=== PATIENT | male | born 1940 | race Caucasian/White ===

== ENCOUNTER 2019-03-18 14:38 | Emergency (ER) | payer MEDICARE, OTHER ==
[~2019-03-18] VITALS: Ht 177.8 cm; Wt 78.5 kg
[2019-03-18 15:16] LABS: BASOPHILS ABSOLUTE AUTO 0.07 K/mm3 (0.00-0.23); BASOPHILS PERCENT AUTO 1 % (0-2); EOSINOPHILS ABSOLUTE AUTO 0.09 K/mm3 (0.00-0.68); EOSINOPHILS PERCENT AUTO 1 % (0-6); Hematocrit 36.9 % (37.0-53.0); Hemoglobin 12.2 g/dL (13.5-17.5); IMMATURE GRAN ABSOLUTE AUTO 0.04 K/mm3 (0.00-0.10); IMMATURE GRAN PERCENT AUTO 0 % (0-1); LYMPHOCYTES ABSOLUTE AUTO 1.05 K/mm3 (0.84-5.20); LYMPHOCYTES PERCENT AUTO 10 % (21-46); MONOCYTES ABSOLUTE AUTO 0.75 K/mm3 (0.16-1.47); MONOCYTES PERCENT AUTO 7 % (4-13); Mean Corpuscular HGB 30.4 pg (26.0-34.0); Mean Corpuscular HGB Conc 33.1 g/dL (31.5-36.5); Mean Corpuscular Volume 92 fL (80-100); Mean Platelet Volume 9.4 fL (9.1-12.4); NEUTROPHILS ABSOLUTE AUTO 8.68 K/mm3 (1.96-9.15); NEUTROPHILS PERCENT AUTO 81 % (41-73); Platelet Count 265 K/mm3 (150-400); RDW Coefficient Variation 13.7 % (11.7-14.2); RDW Standard Deviation 46.8 fL (35.1-46.3); Red Blood Cell Count 4.01 M/mm3 (4.30-5.90); White Blood Cell Count 10.68 K/mm3 (4.00-11.30)
[2019-03-18 15:33] LABS: Alanine Aminotransfer (ALT/SGP 25 U/L (12-78); Albumin, Blood 3.6 g/dL (3.4-5.0); Albumin/Globulin Ratio 1.1 (0.8-1.8); Alk Phos 67 U/L (50-136); Anion Gap 13 mmol/L (6-16); Aspartate Aminotrans (AST/SGOT 14 U/L (12-37); Bilirubin, Total 0.5 mg/dL (0.1-1.0); Blood Urea Nitrogen 21 mg/dL (8-24); CO2, Blood 21 mmol/L (21-32); Calcium, Blood 8.9 mg/dL (8.5-10.1); Chloride, Blood 108 mmol/L (98-108); Creatinine, Blood 0.84 mg/dL (0.60-1.20); Globulin, Blood 3.4 g/dL (2.2-4.0); Glomerular Filtration Rate >60 (60-); Glucose, Blood 186 mg/dL (70-99); Potassium, Blood 4.2 mmol/L (3.5-5.5); Sodium, Blood 142 mmol/L (136-145); Troponin I <0.015 ng/mL (0.000-0.040)
== END 2019-03-18 16:45 | disposition home or self-care (01) ==
LOC: ER 14:38
PROVIDERS: Physician Assistant
DX: I95.2 Hypotension due to drugs (principal); T46.1X5A Adverse effect of calcium-channel blockers, initial encounter; I11.0 Hypertensive heart disease with heart failure; I50.9 Heart failure, unspecified
CPT/HCPCS: 36415; 80053; 83880; 84484; 85025; 93005; 93010; 99285-25

== ENCOUNTER 2019-09-26 23:10 | Emergency (ER) | payer OTHER, MEDICARE ==
[~2019-09-26] VITALS: Ht 177.8 cm; Wt 78.0 kg
[2019-09-26] MEDS ORDERED: GEMF600 PO (23:30)
[2019-09-26] MEDS ORDERED: TERA5 PO (23:31)
[2019-09-26] MEDS ORDERED: Diovan160 MG PO (23:31)
[2019-09-26] MEDS ORDERED: NIFE60ER PO (23:31)
[2019-09-26] MEDS ORDERED: THERA-D2000 UNIT PO (23:32)
[2019-09-26] MEDS ORDERED: ASPI81CH PO (23:33)
[2019-09-26 23:34] LABS: BASOPHILS ABSOLUTE AUTO 0.06 K/mm3 (0.00-0.23); BASOPHILS PERCENT AUTO 1 % (0-2); EOSINOPHILS ABSOLUTE AUTO 0.06 K/mm3 (0.00-0.68); EOSINOPHILS PERCENT AUTO 1 % (0-6); Hematocrit 40.2 % (37.0-53.0); Hemoglobin 13.1 g/dL (13.5-17.5); IMMATURE GRAN ABSOLUTE AUTO 0.02 K/mm3 (0.00-0.10); IMMATURE GRAN PERCENT AUTO 0 % (0-1); LYMPHOCYTES ABSOLUTE AUTO 0.97 K/mm3 (0.84-5.20); LYMPHOCYTES PERCENT AUTO 14 % (21-46); MONOCYTES ABSOLUTE AUTO 0.48 K/mm3 (0.16-1.47); MONOCYTES PERCENT AUTO 7 % (4-13); Mean Corpuscular HGB 29.9 pg (26.0-34.0); Mean Corpuscular HGB Conc 32.6 g/dL (31.5-36.5); Mean Corpuscular Volume 92 fL (80-100); Mean Platelet Volume 9.8 fL (9.1-12.4); NEUTROPHILS ABSOLUTE AUTO 5.53 K/mm3 (1.96-9.15); NEUTROPHILS PERCENT AUTO 78 % (41-73); Platelet Count 250 K/mm3 (150-400); RDW Coefficient Variation 13.2 % (11.7-14.2); RDW Standard Deviation 43.9 fL (35.1-46.3); Red Blood Cell Count 4.38 M/mm3 (4.30-5.90); White Blood Cell Count 7.12 K/mm3 (4.00-11.30)
[2019-09-26] MEDS ORDERED: POTASSIUM99 MG PO (23:34)
[2019-09-26 23:58] LABS: Alanine Aminotransfer (ALT/SGP 20 U/L (12-78); Albumin, Blood 3.7 g/dL (3.4-5.0); Albumin/Globulin Ratio 0.9 (0.8-1.8); Alk Phos 54 U/L (50-136); Anion Gap 10 mmol/L (6-16); Aspartate Aminotrans (AST/SGOT 13 U/L (12-37); Bilirubin, Total 0.3 mg/dL (0.1-1.0); Blood Urea Nitrogen 18 mg/dL (8-24); Bun/Creatinine Ratio 16.8 (12.0-20.0); CO2, Blood 24 mmol/L (21-32); Calcium, Blood 9.1 mg/dL (8.5-10.1); Chloride, Blood 105 mmol/L (98-108); Creatinine, Blood 1.07 mg/dL (0.60-1.20); Globulin, Blood 3.9 g/dL (2.2-4.0); Glomerular Filtration Rate >60 (60-); Glucose, Blood 231 mg/dL (70-99); Potassium, Blood 3.9 mmol/L (3.5-5.5); Sodium, Blood 139 mmol/L (136-145); Total Protein, Blood 7.6 g/dL (6.4-8.2); Troponin I 0.016 ng/mL (0.000-0.040)
== END 2019-09-27 03:35 | disposition home or self-care (01) ==
LOC: ER 23:10
PROVIDERS: Emergency Medicine
DX: R56.9 Unspecified convulsions (principal)
CPT/HCPCS: 80053; 84484; 85025; 93005; 93010; 99284-25

== ENCOUNTER 2019-11-17 12:23 | Inpatient (IN) | payer OTHER, MEDICARE ==
[~2019-11-17] VITALS: Ht 172.7 cm; Wt 77.7 kg
[~2019-11-17 12:23] MED LIST: ASPI81CH PO; Diovan160 MG PO; GEMF600 PO; NIFE60ER PO; POTASSIUM99 MG PO; THERA-D2000 UNIT PO; Terazosin HCl10 MG PO
[2019-11-17] MEDS ORDERED: ASPI325EC PO (12:38)
[2019-11-17] MEDS ORDERED: ELIQUIS5 MG PO (13:00)
[2019-11-17] MEDS ORDERED: FOLI1 PO (13:01)
[2019-11-17] MEDS ORDERED: LOSARTAN POTAS100 M1 PO (13:01)
[2019-11-17] MEDS ORDERED: BASAGLAR K100 UNIT/1 SC (13:02)
[2019-11-17] MEDS ORDERED: METF500 PO (13:02)
[2019-11-17 13:10] LABS: BASOPHILS ABSOLUTE AUTO 0.05 K/mm3 (0.00-0.23); BASOPHILS PERCENT AUTO 1 % (0-2); EOSINOPHILS ABSOLUTE AUTO 0.02 K/mm3 (0.00-0.68); EOSINOPHILS PERCENT AUTO 0 % (0-6); Hematocrit 41.3 % (37.0-53.0); Hemoglobin 13.5 g/dL (13.5-17.5); IMMATURE GRAN ABSOLUTE AUTO 0.03 K/mm3 (0.00-0.10); IMMATURE GRAN PERCENT AUTO 0 % (0-1); LYMPHOCYTES ABSOLUTE AUTO 0.91 K/mm3 (0.84-5.20); LYMPHOCYTES PERCENT AUTO 10 % (21-46); MONOCYTES ABSOLUTE AUTO 0.36 K/mm3 (0.16-1.47); MONOCYTES PERCENT AUTO 4 % (4-13); Mean Corpuscular HGB 30.8 pg (26.0-34.0); Mean Corpuscular HGB Conc 32.7 g/dL (31.5-36.5); Mean Corpuscular Volume 94 fL (80-100); Mean Platelet Volume 9.9 fL (9.1-12.4); NEUTROPHILS ABSOLUTE AUTO 7.69 K/mm3 (1.96-9.15); NEUTROPHILS PERCENT AUTO 85 % (41-73); Platelet Count 342 K/mm3 (150-400); RDW Coefficient Variation 13.2 % (11.7-14.2); RDW Standard Deviation 46.3 fL (35.1-46.3); Red Blood Cell Count 4.38 M/mm3 (4.30-5.90); White Blood Cell Count 9.06 K/mm3 (4.00-11.30)
[2019-11-17 13:14] LABS: Troponin I 0.022 ng/mL (0.000-0.040)
[2019-11-17 13:15] LABS: Alanine Aminotransfer (ALT/SGP 38 U/L (12-78); Albumin, Blood 3.7 g/dL (3.4-5.0); Albumin/Globulin Ratio 0.9 (0.8-1.8); Alk Phos 75 U/L (50-136); Anion Gap 6 mmol/L (6-16); Aspartate Aminotrans (AST/SGOT 20 U/L (12-37); Bilirubin, Total 0.7 mg/dL (0.1-1.0); Blood Urea Nitrogen 21 mg/dL (8-24); Bun/Creatinine Ratio 27.5 (12.0-20.0); CO2, Blood 25 mmol/L (21-32); Chloride, Blood 110 mmol/L (98-108); Creatinine, Blood 0.77 mg/dL (0.60-1.20); Globulin, Blood 3.9 g/dL (2.2-4.0); Glomerular Filtration Rate >60 (60-); Glucose, Blood 278 mg/dL (70-99); Potassium, Blood 4.3 mmol/L (3.5-5.5); Sodium, Blood 141 mmol/L (136-145); Total Protein, Blood 7.6 g/dL (6.4-8.2)
[2019-11-17 15:44] LABS: Adenovirus Not Detected (NOT DETECT); Bordetella pertussis Not Detected (NOT DETECT); Chlamydophila pneumoniae Not Detected (NOT DETECT); Coronavirus 229E Not Detected (NOT DETECT); Coronavirus HKU1 Not Detected (NOT DETECT); Coronavirus NL63 Not Detected (NOT DETECT); Coronavirus OC43 Not Detected (NOT DETECT); Human Metapneumovirus Not Detected (NOT DETECT); Human Rhinovirus/Enterovirus Not Detected (NOT DETECT); Influenza A/2009-H1 Not Detected (NOT DETECT); Influenza A/H1 Not Detected (NOT DETECT); Influenza A/H3 Not Detected (NOT DETECT); Influenza B Not Detected (NOT DETECT); Mycoplasma pneumoniae Not Detected (NOT DETECT); Parainfluenza Virus 1 Not Detected (NOT DETECT); Parainfluenza Virus 2 Not Detected (NOT DETECT); Parainfluenza Virus 3 Not Detected (NOT DETECT); Parainfluenza Virus 4 Not Detected (NOT DETECT); Respiratory Syncytial Virus Not Detected (NOT DETECT)
--- NOTE | 2019-11-17 17:12 | NUR ---
Echocardiogram completed by Nadira Bray.
--- NOTE | 2019-11-17 18:14 | NUR ---
ADMISSION NOTE PCU DAYSHIFT SUMMARY PATIENT ALERT AND ORIENTED X4. BIPAP IN PLACE - LABORED UNEVEN BREATHING NOTED; 07/08 WITH BACK UP RATE OF 14 AND RR 22-26 WITH FIO2 50%. PATIENT DENIES ANY PAIN. BLE EDEMA NOTED. HEART RATE PACED 100% AT 60 BPM. PATIENT VOIDED X2 CLEAR YELLOW URINE - ABLE TO TOLERATE STANDING AT BEDSIDE WELL. WILL CONTINUE TO MONITOR AND GIVE REPORT TO NOC SHIFT RN. CALL LIGHT W/I REACH AND BED ALARM ON.
--- NOTE | 2019-11-17 20:00 | NUR ---
ASSUMED CARE APPROXIMATELY 1900; PT A&O; BP ELEVATED; 190/100; DENIES CHEST PAIN; O2 SATS >93 ON BIPAP; FIO2 40%; RT AT BEDSIDE FOR ASSESSMENT & BIPAP ADJUSTMENT; PT STATES HE IS STARTING TO FEEL BETTER; PT STANDS AT BEDSIDE TO USE URINAL; DISCUSSED POSSIBILITY OF CONDOM CATH DURING NIGHT DUE TO FREQUENT URINATION RESULT OF LASIX ADMINISTRATION; PT DENIES NEEDS AT THIS TIME; CALL LIGHT IN REACH; BED IN LOWEST POSITION
[2019-11-18 04:13] LABS: BASOPHILS ABSOLUTE AUTO 0.01 K/mm3 (0.00-0.23); BASOPHILS PERCENT AUTO 0 % (0-2); EOSINOPHILS PERCENT AUTO 0 % (0-6); Hematocrit 38.3 % (37.0-53.0); Hemoglobin 12.7 g/dL (13.5-17.5); IMMATURE GRAN ABSOLUTE AUTO 0.03 K/mm3 (0.00-0.10); IMMATURE GRAN PERCENT AUTO 0 % (0-1); LYMPHOCYTES ABSOLUTE AUTO 1.23 K/mm3 (0.84-5.20); LYMPHOCYTES PERCENT AUTO 16 % (21-46); MONOCYTES PERCENT AUTO 9 % (4-13); Mean Corpuscular HGB 30.6 pg (26.0-34.0); Mean Corpuscular HGB Conc 33.2 g/dL (31.5-36.5); Mean Corpuscular Volume 92 fL (80-100); Mean Platelet Volume 10.2 fL (9.1-12.4); NEUTROPHILS ABSOLUTE AUTO 5.76 K/mm3 (1.96-9.15); NEUTROPHILS PERCENT AUTO 75 % (41-73); Platelet Count 324 K/mm3 (150-400); RDW Coefficient Variation 13.3 % (11.7-14.2); RDW Standard Deviation 45.2 fL (35.1-46.3); Red Blood Cell Count 4.15 M/mm3 (4.30-5.90); White Blood Cell Count 7.73 K/mm3 (4.00-11.30)
[2019-11-18 04:31] LABS: Anion Gap 8 mmol/L (6-16); Blood Urea Nitrogen 22 mg/dL (8-24); Bun/Creatinine Ratio 28.2 (12.0-20.0); CO2, Blood 26 mmol/L (21-32); Calcium, Blood 8.6 mg/dL (8.5-10.1); Chloride, Blood 108 mmol/L (98-108); Creatinine, Blood 0.78 mg/dL (0.60-1.20); Glomerular Filtration Rate >60 (60-); Glucose, Blood 243 mg/dL (70-99); Potassium, Blood 3.3 mmol/L (3.5-5.5); Sodium, Blood 142 mmol/L (136-145)
--- NOTE | 2019-11-18 06:09 | NUR ---
SHIFT SUMMARY PT A&O; PLEASANT & COMPLIANT W/CARE; CONDOM CATH PLACED PER PT REQUEST; VSS; FULLY PACED; HR NOTED ON MONITOR 54-64; PT SLEPT FOR SEVERAL HOURS IN BETWEEN INTERVENTIONS; DENIES NEEDS; CALL LIGHT IN REACH; BED IN LOWEST POSITION; WILL CONTINUE TO MONITOR CLOSELY UNTIL HAND OFF TO DAY SHIFT RN.
--- NOTE | 2019-11-18 09:30 | NUR ---
PATIENT REPORTED CHEST PRESSURE CHEST PRESSURE REPORTED PER PATIENT - MD VAUGHAN NOTIFIED. EKG COMPLETED AND NITRO PATCH PLACED PER ORDERS. VSS. WILL CONTINUE TO MONITOR PER ORDERS.
[2019-11-18 11:30] LABS: International Normalized Ratio 1.22; Prothrombin Time Results 12.9 Sec (9.7-11.5)
--- NOTE | 2019-11-18 17:07 | NUR ---
PCU DAYSHIFT SUMMARY PATIENT REMAINED ALERT AND ORIENTED X4 T/O SHIFT. PATIENT DENIED ANY FURTHER CHEST PAIN AFTER NITRO PATCH PLACED, HEPARIN GTT STARTED AND PLAVIX GIVEN. PATIENT TO BE NPO AFTER MIDNIGHT FOR A POSSIBLE ANGIO IN AM PER MD CHRISTENSEN. PATIENT PLEASANT AND COOPERATIVE WITH CARE. HEART RATE 100% PACED IN THE 60'S WITH PRESSURE NORMOTENSIVE. RESP E/U AT REST - OXYGEN TITRATED DOWN TO 3 LPM NC AND BIPAP DURING REST WITH FIO2 AT 25%. PATIENT REPORTS HE FEELS BETTER. SBA. CONDOM CATH IN PLACE DUE TO DIUESING. CALL LIGHT W/I REACH AND BED ALARM ON. WILL CONTINUE TO MONITOR AND REPORT TO NOC SHIFT RN.
--- NOTE | 2019-11-18 20:09 | NUR ---
ASSUMED CARE APPROXIMATELY 1900; PT A&O; WATCHING TV; CONVERSES EASILY W/ STAFF; NO DISTRESS NOTED; VSS; DENIES CHEST PAIN; 02 SATS >93 ON 3L NC; RT AT BEDSIDE FOR ASSESSMENT; LAB NOTIFIED OF NEED FOR BLOOD DRAW FOR PTT & TROPONIN; CALL LIGHT IN REACH; BED IN LOWEST POSITION
[2019-11-19 01:55] LABS: BASOPHILS ABSOLUTE AUTO 0.06 K/mm3 (0.00-0.23); BASOPHILS PERCENT AUTO 1 % (0-2); EOSINOPHILS ABSOLUTE AUTO 0.09 K/mm3 (0.00-0.68); EOSINOPHILS PERCENT AUTO 1 % (0-6); Hematocrit 38.4 % (37.0-53.0); Hemoglobin 12.8 g/dL (13.5-17.5); IMMATURE GRAN ABSOLUTE AUTO 0.03 K/mm3 (0.00-0.10); IMMATURE GRAN PERCENT AUTO 0 % (0-1); LYMPHOCYTES ABSOLUTE AUTO 1.95 K/mm3 (0.84-5.20); LYMPHOCYTES PERCENT AUTO 23 % (21-46); MONOCYTES ABSOLUTE AUTO 0.75 K/mm3 (0.16-1.47); MONOCYTES PERCENT AUTO 9 % (4-13); Mean Corpuscular HGB 31.1 pg (26.0-34.0); Mean Corpuscular HGB Conc 33.3 g/dL (31.5-36.5); Mean Corpuscular Volume 93 fL (80-100); Mean Platelet Volume 9.3 fL (9.1-12.4); NEUTROPHILS ABSOLUTE AUTO 5.52 K/mm3 (1.96-9.15); NEUTROPHILS PERCENT AUTO 66 % (41-73); Platelet Count 322 K/mm3 (150-400); RDW Coefficient Variation 13.4 % (11.7-14.2); RDW Standard Deviation 45.1 fL (35.1-46.3); Red Blood Cell Count 4.12 M/mm3 (4.30-5.90)
[2019-11-19 02:09] LABS: Anion Gap 7 mmol/L (6-16); Blood Urea Nitrogen 20 mg/dL (8-24); Bun/Creatinine Ratio 27.2 (12.0-20.0); CO2, Blood 28 mmol/L (21-32); Calcium, Blood 8.5 mg/dL (8.5-10.1); Chloride, Blood 105 mmol/L (98-108); Creatinine, Blood 0.74 mg/dL (0.60-1.20); Glomerular Filtration Rate >60 (60-); Glucose, Blood 193 mg/dL (70-99); Potassium, Blood 3.2 mmol/L (3.5-5.5); Sodium, Blood 140 mmol/L (136-145)
--- NOTE | 2019-11-19 07:00 | NUR ---
ASSUMED CARE AT THIS TIME. SITTING IN BED IN HIGH SUPINE POSITION. A/A/OX4, RT WITH PT, BIPAP REMOVED AND ON 4L NC. DOMINGO CATH IN PLACE DRAINING TO SHARP BAG. URINE CLEAR YELLOW. HEPARIN INFUSING AT 17UNIT/KG PER ORDERS AT THIS TIME. PACED RYTHYM ON TELEMETRY, WILL CONTINUE TO MONITOR.
--- NOTE | 2019-11-19 10:11 | NUR ---
HEPARIN BOLUS OF 4000UNITS AND DRIP INCREASED TO 19UNITS/KG PER PHARMACY ORDER.
--- NOTE | 2019-11-19 12:02 | NUR ---
INSULIN DOSE 5UNITS HUMALOG VERIFIED BY EVGENY DEY
--- NOTE | 2019-11-19 17:35 | NUR ---
SHIFT SUMMARY: A/A/OX4 THROUGHOUT SHIFT. 3L O2 VIA NC THROUGHOUT SHIFT. L/S DIMINISHED THROUGHOUT. MAINTAINED 93-96% O2 THROUGHOUT SHIFT. HEPARIN INCREASED TODAY TO 19UNITS/KG PER PHARMACY ORDER. CONDOM CATH REMOVED TODAY, USING URINAL AT BEDSIDE WITHOUT DIFFICULTY. REMAINS IN ISOLATION FOR COVID R/O. WILL CONTINUE TO MONITOR UNTIL CHANGE OF SHIFT.
--- NOTE | 2019-11-19 17:41 | NUR ---
INCREASED HEPRIN DRIP TO 20UNITS/KG PER PHARMACY ORDER.
--- NOTE | 2019-11-19 19:40 | NUR ---
ASSUMED CARE APPROXIMATELY 1900; PT A&O; STATES HE HAD A GOOD DAY; STATED HE SPOKE W/ SON ON THE PHONE; VSS; O2 SATS >93 ON 3L NC; DIM LUNG SOUNDS; RT AT BEDSIDE; PT DENIES CHEST PAIN; HEP GTT INFUSING; DENIES NEEDS AT THIS TIME; CALL LIGHT IN REACH; BED IN LOWEST POSITION
--- NOTE | 2019-11-20 01:50 | NUR ---
UPDATE 19 BEAT RUN OF VTACH NOTED ON TELE @ 0143; NO SIGNS OF DISTRESS; CALL LIGHT IN REACH; BED IN LOWEST POSITION
[2019-11-20 03:44] LABS: BASOPHILS ABSOLUTE AUTO 0.06 K/mm3 (0.00-0.23); BASOPHILS PERCENT AUTO 1 % (0-2); EOSINOPHILS ABSOLUTE AUTO 0.16 K/mm3 (0.00-0.68); EOSINOPHILS PERCENT AUTO 2 % (0-6); Hematocrit 39.6 % (37.0-53.0); Hemoglobin 13.4 g/dL (13.5-17.5); IMMATURE GRAN ABSOLUTE AUTO 0.02 K/mm3 (0.00-0.10); IMMATURE GRAN PERCENT AUTO 0 % (0-1); LYMPHOCYTES ABSOLUTE AUTO 1.97 K/mm3 (0.84-5.20); LYMPHOCYTES PERCENT AUTO 26 % (21-46); MONOCYTES ABSOLUTE AUTO 0.67 K/mm3 (0.16-1.47); MONOCYTES PERCENT AUTO 9 % (4-13); Mean Corpuscular HGB 30.9 pg (26.0-34.0); Mean Corpuscular HGB Conc 33.8 g/dL (31.5-36.5); Mean Corpuscular Volume 91 fL (80-100); Mean Platelet Volume 9.4 fL (9.1-12.4); NEUTROPHILS ABSOLUTE AUTO 4.74 K/mm3 (1.96-9.15); NEUTROPHILS PERCENT AUTO 62 % (41-73); Platelet Count 323 K/mm3 (150-400); RDW Standard Deviation 43.5 fL (35.1-46.3); Red Blood Cell Count 4.34 M/mm3 (4.30-5.90); White Blood Cell Count 7.62 K/mm3 (4.00-11.30)
[2019-11-20 04:08] LABS: Anion Gap 7 mmol/L (6-16); Blood Urea Nitrogen 15 mg/dL (8-24); Bun/Creatinine Ratio 23.9 (12.0-20.0); CO2, Blood 28 mmol/L (21-32); Calcium, Blood 8.6 mg/dL (8.5-10.1); Chloride, Blood 102 mmol/L (98-108); Creatinine, Blood 0.63 mg/dL (0.60-1.20); Glomerular Filtration Rate >60 (60-); Glucose, Blood 192 mg/dL (70-99); Potassium, Blood 3.1 mmol/L (3.5-5.5); Sodium, Blood 137 mmol/L (136-145)
--- NOTE | 2019-11-20 07:54 | NUR ---
SHIFT SUMMARY PT A&O; COMPLIANT W/ CARE; HEP GTT ADJUSTED TO 21U/KG/HR; PT SLEPT SEVERAL HOURS IN BETWEEN INTERVENTION; O2 SATS >93 ON 3L NC; PT DENIED BIPAP; USES URINAL AT BEDSIDE FOR URINATION; DENIES NEEDS AT THIS TIME; CALL LIGHT IN REACH; BED IN LOWEST POSITION; REPORT GIVEN TO DAY SHIFT RN.
--- NOTE | 2019-11-20 18:02 | NUR ---
SHIFT SUMMARY PT IS A&OX4. THIS MORNING PT WAS ON 3L OF O2. PT WAS ABLE TO BE WEANED TO ROOM AIR BY MID MORNING AND HAS MAINTAINED HIS SPO2 MID 90'S ALL AFTERNOON. TELEMETRY HAS SHOWN PT TO BE V-PACED, OCCASIONALY PVC'S, PT DECLINES ANY CHEST PAIN. HEPARIN GTT CONTINUES, DOSING PER PHARMACY. VITALS HAVE REMAINED STABLE.
--- NOTE | 2019-11-20 21:00 | NUR ---
ASSUMPTION OF CARE ASSUMED CARE OF PT @ 1900, PT AWAKE IN BED, ORIENTED TO SELF, PLACE, EVENT AND FOLLOWING DIRECTIONS. O2 SATURATIONS>90% ON RA, PT AGREES TO WEAR CPAP AT NIGHT, DENIES SOB AT THIS TIME. PT ATRIAL PACED WITH PVC'S PER TELE MONITOR, HR 58-61. PT DENIES ANY GI/ ISSUES AT THIS TIME, REPOSITIONS SELF IN BED, USES URINAL AT BEDSIDE INDEPENDENTLY. CALL LIGHT WITHIN REACH.
[2019-11-21 01:00] LABS: Anion Gap 5 mmol/L (6-16); Blood Urea Nitrogen 16 mg/dL (8-24); Bun/Creatinine Ratio 20.9 (12.0-20.0); CO2, Blood 29 mmol/L (21-32); Calcium, Blood 8.7 mg/dL (8.5-10.1); Chloride, Blood 105 mmol/L (98-108); Creatinine, Blood 0.76 mg/dL (0.60-1.20); Glomerular Filtration Rate >60 (60-); Glucose, Blood 124 mg/dL (70-99); Potassium, Blood 3.5 mmol/L (3.5-5.5); Sodium, Blood 139 mmol/L (136-145)
--- NOTE | 2019-11-21 06:21 | NUR ---
SHIFT SUMMARY NO ACUTE CHANGES THIS SHIFT. PT RESTED T/O NIGHT, TOLERATED CPAP FOR APPROX 6 HOURS, O2 SATURATIONS MAINTAINED>90%, DENIES SOB, PT REMAINS PACED WTIH SOME PVC'S, BP STABLE. PT UP TO SIDE OF BED INDEPENDENTLY TO VOID IN URINAL. CALL FROM CHRISTIANE IN LAB THIS AM, COVID TEST RESULTED NEGATIVE. PT HAS BEEN NPO SINCE MIDNIGHT. DENIES ANY NEEDS AT THIS TIME, CALL LIGHT WITHIN REACH.
--- NOTE | 2019-11-21 10:48 | NUR ---
PCU DAYSHIFT - ASSUMED CARE PATIENT REMAINS ALERT AND ORIENTED X4. RESP E/U ON ROOM AIR. PATIENT MOVED SELF TO SIDE OF BED TO SIT UP AND STOOD AND STRETCHED - TOLERATED WELL. HEPARIN GTT D/C'D PER MD SIMEON PRE-PROCEDURE. PATIENT REMAINS 100% PACED IN THE 60'S. PATIENT DENIES ANY PAIN. LUNG SOUNDS CLEAR. PATIENT VERBALIZED UNDERSTANDING OF ANGIO. PRE-PROCEDURE MEDICATIONS GIVEN PER EMAR FOR IODINE ALLERGY. CALL LIGHT W/I REACH. WILL CONTINUE TO MONITOR. PATIENT NOW NPO PREPROCEDURE.
--- NOTE | 2019-11-21 14:47 | NUR ---
Spiritual care visit conducted. Patient explained about his medical conditions, his family history (including the of his son) and his careers. Patient tells me about his [employer] and [place]. Patient tells me his concerns about his upcoming angiogram. I listen empathically, normalize patient's experience, reinforce helpful attitudes and practices and provide companionship and pre-procedure prayer. Patient responds well and shows signs of increased peace. I will continue to remain available to patient and family.
--- NOTE | 2019-11-21 14:53 | NUR ---
PATIENT LEFT DEPARTMENT FOR ASSISTANT TEACHER PRIMARY PATIENT LEFT DEPT ON ROOM AIR IN NO ACUTE DISTRESS OF ANGIGRAM
--- NOTE | 2019-11-21 18:11 | NUR ---
PCU DAYSHIFT SUMMARY PATIENT ARRIVED BACK TO UNIT AT APPROX 1800 FROM ANGIOGRAM - RIGHT UPPER ARM BRACHIAL VENOUS SITE NOTED WITH HELGA AND TEGARDERM IN PLACE - NO S/SX OF BLEEDING NOTED. PATIENT ALSO HAS RIGHT RADIAL ARTERY ACCESS WITH TR BAND IN PLACE (TR BAND PLACED AT 1730) WITH 14 CC'S OF AIR IN BAND. PATIENT VSS - REMAINS ON ROOM AIR T/O SHIFT. AMBULATES WITH SBA TO BATHROOM. PATIENT EDUCATED ON POST ANGIOGRAM PRECAUTIONS. NO ACUTE CHANGES OR DISTRESS NOTED. [address] DURING ANGIOGRAM - PATIENT NEEDS ANOTHER ANGIOGRAM TO REPAIR LAD. WILL CONTINUE TO MONITOR AND REPORT TO NOC SHIFT RN.
--- NOTE | 2019-11-21 19:15 | NUR ---
ASSUME CARE BEDSIDE REPOERT RECIEVED FROM OFF GOING RN MAY. MONITOR INTACT SHOWING PACED RHYTHM DENIES CHEST DISCOMFORT. TR BAND INTACT WITH BRACE TO R FOREARM . LUNG SOUNDS CLEAR WITH DECREASED SOUNDS IN THE BASES. RESPIRATIONS REGULAR AND EASY AT REST SPO2 95% ON ROOM AIR ABDOMEN SOFT WITH BOWEL SOUNDS FOUR QUADS. VOIDS CHUY URINE PER URINAL WITH MINAMIL ASSIST. SKIN WARM DRY INTACT NO EDEMA NOTED PEDAL PULSES PRESETN. SPEAKS WITH FAMILY ON PHONE. CONTINUE TO MONITOR AND REPORT CHANGE IN PATIENT CONDITION.
[2019-11-22 03:38] LABS: BASOPHILS ABSOLUTE AUTO 0.01 K/mm3 (0.00-0.23); BASOPHILS PERCENT AUTO 0 % (0-2); EOSINOPHILS PERCENT AUTO 0 % (0-6); Hematocrit 42.2 % (37.0-53.0); IMMATURE GRAN ABSOLUTE AUTO 0.03 K/mm3 (0.00-0.10); IMMATURE GRAN PERCENT AUTO 0 % (0-1); LYMPHOCYTES ABSOLUTE AUTO 1.17 K/mm3 (0.84-5.20); LYMPHOCYTES PERCENT AUTO 13 % (21-46); MONOCYTES ABSOLUTE AUTO 0.59 K/mm3 (0.16-1.47); MONOCYTES PERCENT AUTO 7 % (4-13); Mean Corpuscular HGB 30.6 pg (26.0-34.0); Mean Corpuscular HGB Conc 33.2 g/dL (31.5-36.5); Mean Corpuscular Volume 92 fL (80-100); Mean Platelet Volume 9.9 fL (9.1-12.4); NEUTROPHILS ABSOLUTE AUTO 7.21 K/mm3 (1.96-9.15); NEUTROPHILS PERCENT AUTO 80 % (41-73); Platelet Count 327 K/mm3 (150-400); RDW Coefficient Variation 12.9 % (11.7-14.2); RDW Standard Deviation 43.6 fL (35.1-46.3); Red Blood Cell Count 4.57 M/mm3 (4.30-5.90); White Blood Cell Count 9.01 K/mm3 (4.00-11.30)
[2019-11-22 04:04] LABS: Anion Gap 6 mmol/L (6-16); Blood Urea Nitrogen 21 mg/dL (8-24); Bun/Creatinine Ratio 24.1 (12.0-20.0); CO2, Blood 27 mmol/L (21-32); Calcium, Blood 8.6 mg/dL (8.5-10.1); Chloride, Blood 103 mmol/L (98-108); Creatinine, Blood 0.87 mg/dL (0.60-1.20); Glomerular Filtration Rate >60 (60-); Glucose, Blood 351 mg/dL (70-99); Potassium, Blood 3.8 mmol/L (3.5-5.5); Sodium, Blood 136 mmol/L (136-145)
--- NOTE | 2019-11-22 06:35 | NUR ---
SHIFT SUMMNARY: RESTS QUIETLY WHEN UNDISTURBED. MONITOR INTACT SHOWING PACED RHYTHM HEART RATE 60'S. EKG OBTAINED THIS AM. TR BAND SITE CLEAR WITH DRESSING INTACT. LUNG SOUNDS CLEAR UPPER LOBES WITH DECREASED R BASE. RESPIRATIONS REGULAR AND EASY AT REST BECOMES SOB WITH EXERTION. ABEDOMEN SOFT WITH BOWEL SOUNDS FOUR QUADS. VOIDS CHUY URINE PER URINAL. REPOSITIONS SELF IN BED. YI WELL. CONTINUE TO MONITOR AND REPORT CHANGE IN PATIENT CONDITION.
--- NOTE | 2019-11-22 07:28 | NUR ---
ASSUMED PATIENT CARE. PATIENT RESTING COMFORTABLY IN BED, CONVERSING WITH NURSING STAFF. NO NEW DISCHARGE NOTED AT ANGIO WRIST PUNCTURE SITE, NON-TENDER. NO SIGNS OF ACUTE DISTRESS, WCTM.
--- NOTE | 2019-11-22 09:49 | NUR ---
Initial Visit: Palliative Care Consult for Advanced Care Planning. Pt is A&O and denies pain at this time. Pt denies nausea and anxiety. Engaged in therapeutic conversation regarding Advanced Care Planning. Pt [place] living [place] He reports taking in a homeless man 2 years ago who has been his roommate since. Pt reports mild to moderate impairment with mobilty and uses a cane to assist with ambulation. Pt is able to bathe and dress himself. Discussed current plan of care and the importance of planning for the future. Educated Pt on disease process and trajectory. Educated on the importance of routine conversations with Pt's PCP and Director Of Revenue Cycle Management. Suggested developing multiple plans with PCP as the disease process takes it coarse in order to prepare accordingly. Discussed the importance of completing an Advanced Directive or POLST. Educated on life sustaining measures including risk factors. At this point in conversation Pt appeared to become mildly confused and was not retaining information well. Left AD/POLST on overbed table for Pt to consider completing. Spoke with Bedside EVGENY Duenas and discussed case. Palliative Care will remain available.
--- NOTE | 2019-11-22 11:59 | NUR ---
Spiritual care visit conducted. Patient is very talkative and admits that he is scared. His fears center around having to leave the ranch that he has lived at for the last 50 years and that he would have to move in with his daughter in [place]. Patient is also concerned about his health and how long he will survive given his medical issues. Patient is fearful that the homeless man, Chris, that has lived on his property for 2yrs will try to take the ranch. Patient expressed many other concerns. I listened empathically, normalized patient's experience, and provided pastoral eap counselor and prayer. Patient responded well and shows signs of increased peace. I will continue to remain available to patient and family.
--- NOTE | 2019-11-22 17:30 | NUR ---
NO ACUTE EVENTS THIS SHIFT.NO DRAINAGE NOTED AT ANGIO PUNCTURE SITE, WOUND NON-TENDER. BLOOD GLUCOSE LEVELS WERE IN 300S FIRST HALF OF SHIFT, CAME DOWN TO 114 AT AC DINNER CHECK. PATIENT REPORTED SOME DISCOMFORT IN HIS SIDE, BUT THEN HAD RELIEF OF DISCOMFORT AFTER BOWEL MOVEMENT. PLAN IS FOR PATIENT TO HAVE ANGIO AND STENT PLACED TOMORROW FOR LAD. PATIENT CONTINUED TO BE PACED IN 60S.
[2019-11-23 03:56] LABS: Anion Gap 4 mmol/L (6-16); Blood Urea Nitrogen 17 mg/dL (8-24); Bun/Creatinine Ratio 24.3 (12.0-20.0); CO2, Blood 30 mmol/L (21-32); Calcium, Blood 8.4 mg/dL (8.5-10.1); Chloride, Blood 104 mmol/L (98-108); Glomerular Filtration Rate >60 (60-); Glucose, Blood 207 mg/dL (70-99); Potassium, Blood 3.7 mmol/L (3.5-5.5); Sodium, Blood 138 mmol/L (136-145)
--- NOTE | 2019-11-23 04:58 | NUR ---
SHIFT SUMMARY; PT A&O; COMPLIANT W/ CARE; VSS; DENIES CP; PACED W/ HR 58-65 NOTED ON TELE; O2 SATS >94 ON RA; CPAP USED FOR SLEEPING; STAND AT BEDSIDE FOR URINAL; CALLS APPROPRIATELY; PT SLEPT SEVERAL HOURS IN BETWEEN INTERVENTIONS; NPO @ MIDNIGHT FOR PREP FOR ANGIO; R RADIAL & R BRACHIAL SITE DRY, TEGADERM IN PLACE; PT CURRENTLY SLEEPING; CALL LIGHT IN REACH; BED IN LOWEST POSITION; WILL CONTINUE TO MONITOR CLOSELY UNTIL HAND OFF TO DAY SHIFT RN.
--- NOTE | 2019-11-23 08:44 | NUR ---
AM NOTE... ASSUMED CARE OF PT APROX 0700. PT IS A&Ox4 AND SBA W/FWW. PT IS CURRENTLY NPO FOR ANGIO TODAY. RIGHT RADIAL AND BRACHIAL SITE ARE C/D/I FROM PREVIOUS ANGIO. VS STABLE AT THIS TIME. PT DENIES CHEST PAIN/PRESSURE N/V OR SOB. L/S CLEAR IN THE UPPER LOBES FINE CRACKLES NOTED IN THE BASES. PT IS ON RA WITH O2 SATS >95% RR EVEN AND UNLABORED AT 18. NO EDEMA IS NOTED ON ASSESSMENT. BT PRESENT AND HYPERACTIVE, ABD SOFT AND NONTENDER TO PALP. CALL LIGHT IN REACH WILL CONTINUE TO MONITOR.
--- NOTE | 2019-11-23 15:43 | NUR ---
Spiritual care visit conducted. Patient immediately tells me that he is discouraged by the failed attempted to bust open the blockage. He explains about the complications this presents in his life. I point him back to what was learned in the attempt and that this will be taken care of just not today. I provide pastoral student assistance counselor and prayer. Patient shows signs of renewed hope. I will continue to remain available to patient and family.
--- NOTE | 2019-11-23 17:32 | NUR ---
SHIFT SUMMARY... PT WENT TO HEEL STAINER AND RETURED APROX 1420. PT DENIES ANY CHEST PAIN/PRESSURE N/V OR SOB. POST OP VS STABLE. TR BAND IS C/D/I WITH 10MLS IN THE BAND. PT DENIES ANY NUMBNESS/TINGLING/PAIN TO HIS RIGHT HAND/ARM. PT HAS BEEN VERY FORGETFUL ABOUT NOT USING HIS RIGHT HAND/ARM, PT HAS BEEN EDUCATED AND REMINDED SEVERAL TIMES NOT TO USE THE RIGHT ARM BUT HE CONTINUES TO STILL USE IT FOR HIS PHONE, MOVING HIS PILLOW ECT. ARM SLING WAS PLACED ON THE PT TO HELP REMIND HIM NOT TO USE THE ARM HOWEVER THIS STILL DOES NOT HELP. BED ALARM HAS BEEN PLACED ON THE BED D/T THE PT GETTING UP TO VOID WITHOUT USING THE CALL LIGHT, PT WAS EDUCATED ON FALL RISKS AND SAFETY WHILE IN THE HOSPITAL. CALL LIGHT IN REACH WILL CONTINUE TO MONITOR UNTIL REPORT IS GIVEN TO ON COMING RN.
--- NOTE | 2019-11-24 05:39 | NUR ---
SHIFT SUMMARY PT REMAINED A&O; TR BAND REMOVED APPROXIMATELY 2100; TEGADERM IN PLACE; SCANT DRIED BLOOD NOTED; SLING IN PLACE; O2 SATS > 92 ON RA W/ BIOX ON SECOND DIGIT ON R HAND; FINGERS WARM TO TOUCH; RADIAL PULSES STRONG; CPAP IN PLACE FOR SLEEPING; PT SLEPT SEVERAL HOURS IN BETWEEN INTERVENTIONS; STANDS AT BEDSIDE FOR URINAL; NO ACUTE CHANGES THIS SHIFT; CALL LIGHT IN REACH; BED IN LOWEST POSITION; WILL CONTINUE TO MONITOR CLOSELY UNTIL HAND OFF TO DAY SHIFT RN.
--- NOTE | 2019-11-24 08:03 | NUR ---
AM NOTE.... ASUMED CARE OF PT APROX 0700. PT IS A&Ox4 AND SBA W/FWW IN THE ROOM. PT WAS ADMITTED FOR RESP FAILURE. PT IS CURRENTLY ON RA WITH O2 SATS >93%. PT REQUESTED SHOWER FROM CERTIFIED ENERGY MANAGER THIS AM, PT IS ABLE TO WALK TO THE BATHROOM AND WAS HELPED INTO THE SHOWER. PT'S VS STABLE AND DENIES ANY CHEST PAIN/PRESSURE N/V OR SOB. RIGHT RADIAL/BRACHIAL SITES ARE C/D/I NO SWELLING, BLEEDING OR HEMATOMA NOTED. CALL LIGHT IN REACH WILL CONTINUE TO MONITOR.
--- NOTE | 2019-11-24 15:07 | NUR ---
Spiritual care visit conducted. I provide companionship and prayer. Patient responds well and verbalizes gratitude for my time and care.
--- NOTE | 2019-11-24 17:23 | NUR ---
SHIFT SUMMARY... NO ACUTE NEGATIVE CHANGES NOTED THIS SHIFT. PT'S VS HAVE BEEN STABLE. PLAN OF CARE IS TO D/C HOME TOMORROW. PT AND PT'S FAMILY IS AWARE AND AGREEABLE TO THIS PLAN. THIS RN CALLED THE PT'S DAUGHTER HONORIO AND UPDATED HER ON THE DISCHARGE PLAN. PT WORKED WITH PT/OT AND HAS BEEN UP IN THE CHAIR FOR MOST MEALS TODAY. PT HAS BEEN ON RA T/O SHIFT, DENIES ANY CHEST PAIN/PRESSURE N/V OR SOB. PT IS TO FOLLOW UP WITH CARDIOLOGY November. CALL LIGHT IN REACH WILL CONTINUE TO MONITOR UNTIL REPORT IS GIVEN TO ONCOMING RN.
--- NOTE | 2019-11-25 03:35 | NUR ---
SHIFT SUMMARY: 79 Y/O MALE RESTED COMFORTABLY ALL SHIFT WITH WEARING BIPAP MAJORITY OF SHIFT; DENIES PAIN OR NAUSEA; EAGER TO RETURN HOME AM; HAPPY AND COOPERATIVE; BED LOW POSITION WITH CALL LIGHT AT SIDE.
[2019-11-25 03:49] LABS: BASOPHILS ABSOLUTE AUTO 0.06 K/mm3 (0.00-0.23); BASOPHILS PERCENT AUTO 1 % (0-2); EOSINOPHILS ABSOLUTE AUTO 0.13 K/mm3 (0.00-0.68); EOSINOPHILS PERCENT AUTO 1 % (0-6); Hematocrit 41.6 % (37.0-53.0); Hemoglobin 13.8 g/dL (13.5-17.5); IMMATURE GRAN ABSOLUTE AUTO 0.03 K/mm3 (0.00-0.10); IMMATURE GRAN PERCENT AUTO 0 % (0-1); LYMPHOCYTES ABSOLUTE AUTO 2.12 K/mm3 (0.84-5.20); LYMPHOCYTES PERCENT AUTO 24 % (21-46); MONOCYTES ABSOLUTE AUTO 0.69 K/mm3 (0.16-1.47); MONOCYTES PERCENT AUTO 8 % (4-13); Mean Corpuscular HGB 30.6 pg (26.0-34.0); Mean Corpuscular HGB Conc 33.2 g/dL (31.5-36.5); Mean Corpuscular Volume 92 fL (80-100); Mean Platelet Volume 9.8 fL (9.1-12.4); NEUTROPHILS ABSOLUTE AUTO 5.95 K/mm3 (1.96-9.15); NEUTROPHILS PERCENT AUTO 66 % (41-73); Platelet Count 299 K/mm3 (150-400); RDW Coefficient Variation 12.9 % (11.7-14.2); RDW Standard Deviation 43.8 fL (35.1-46.3); Red Blood Cell Count 4.51 M/mm3 (4.30-5.90); White Blood Cell Count 8.98 K/mm3 (4.00-11.30)
[2019-11-25 04:04] LABS: Anion Gap 5 mmol/L (6-16); Blood Urea Nitrogen 22 mg/dL (8-24); Bun/Creatinine Ratio 29.2 (12.0-20.0); CO2, Blood 30 mmol/L (21-32); Calcium, Blood 8.6 mg/dL (8.5-10.1); Chloride, Blood 103 mmol/L (98-108); Creatinine, Blood 0.75 mg/dL (0.60-1.20); Glomerular Filtration Rate >60 (60-); Glucose, Blood 221 mg/dL (70-99); Potassium, Blood 3.8 mmol/L (3.5-5.5); Sodium, Blood 138 mmol/L (136-145)
--- NOTE | 2019-11-25 08:58 | NUR ---
AM NOTE... ASSUMED CARE OF PT APROX 0700, PT IS A&Ox4 WITH MOMENTS OF FORGETFULNESS. PT IS TO D/C HOME TODAY, PT'S DAUGHTER LIVES 3 HOURS AWAY AND IS AWARE OF THE PLANS TO D/C HOME. PT'S VS STABLE. L/S CLEAR T/O FINE CRACKLES NOTED IN THE BASES, THIS HAS NOT CHANGED IN 3 DAYS. BT PRESENT AND HYPERACTIVE, ABD SOFT AND NONTENDER TO PALP. PT IS ON RA WITH O2 SATS >93%. CALL LIGHT IN REACH WILL CONTINUE TO MONITOR.
[2019-11-25] MEDS ORDERED: FOLI1 PO (10:00)
[2019-11-25] MEDS ORDERED: XARELTO20 MG PO (10:00)
[2019-11-25] MEDS ORDERED: TERA5 PO (10:01)
[2019-11-25] MEDS ORDERED: INSULANPEN SC (10:02)
[2019-11-25] MEDS ORDERED: Vitamin D2000 UNIT PO (10:02)
[2019-11-25] MEDS ORDERED: ASPI81CH PO (10:03)
[2019-11-25] MEDS ORDERED: ATOR20 PO (10:03)
[2019-11-25] MEDS ORDERED: CARV3.125 PO (10:04)
[2019-11-25] MEDS ORDERED: CLOP75 PO (10:04)
[2019-11-25] MEDS ORDERED: Humalog100 UNIT/1 SC (10:07)
[2019-11-25] MEDS ORDERED: LOSA50 PO (10:08)
[2019-11-25] MEDS ORDERED: TORSE20 PO (10:15)
[2019-11-25] MEDS ORDERED: Afeditab Cr60 MG PO (10:15)
--- NOTE | 2019-11-25 15:49 | NUR ---
PT D/C HOME. PT'S DAUGHTER CAME AND PICKED UP THE PT. NEW MEDICATONS WERE CALLED INTO THE PT'S PHARMACY OF CHOICE. PT'S IVS WERE REMOVED WNL. PT DENIED ANY CP, SOB OR N/V. ALL OF PT'S BELONGINGS PACKED AND SENT WITH THE PT.
== END 2019-11-25 14:23 | disposition home or self-care (01) | DRG 246 ==
LOC: ER 12:23 → PCU 14:52
PROVIDERS: Emergency Medicine; Internal Medicine; Internal Medicine Cardiovascular Disease; ADMIT Hospitalist
PROC: 8E0ZXY6 Isolation (ICD-10-PCS; principal; 2019-11-17)
PROC: 027034Z Dilation of Coronary Artery, One Artery with Drug-eluting Intraluminal Device, Percutaneous Approach (ICD-10-PCS; 2019-11-21)
PROC: 4A023N8 Measurement of Cardiac Sampling and Pressure, Bilateral, Percutaneous Approach (ICD-10-PCS; 2019-11-21)
PROC: B2111ZZ Fluoroscopy of Multiple Coronary Arteries using Low Osmolar Contrast (ICD-10-PCS; 2019-11-21)
PROC: B240ZZ3 Ultrasonography of Single Coronary Artery, Intravascular (ICD-10-PCS; 2019-11-21)
DX: I21.4 Non-ST elevation (NSTEMI) myocardial infarction (principal); J96.01 Acute respiratory failure with hypoxia; I50.23 Acute on chronic systolic (congestive) heart failure; I16.1 Hypertensive emergency; I48.20 Chronic atrial fibrillation, unspecified; I11.0 Hypertensive heart disease with heart failure; F17.290 Nicotine dependence, other tobacco product, uncomplicated; E11.9 Type 2 diabetes mellitus without complications; I25.10 Atherosclerotic heart disease of native coronary artery without angina pectoris; Z79.4 Long term (current) use of insulin; E78.5 Hyperlipidemia, unspecified; Z95.0 Presence of cardiac pacemaker; I27.20 Pulmonary hypertension, unspecified; Z79.82 Long term (current) use of aspirin; Z79.01 Long term (current) use of anticoagulants
CPT/HCPCS: 0099U; 36415; 71045; 80048; 80053; 82947; 83605; 83735; 83880; 84145; 84443; 84484; 85025; 85347; 85610; 85730; 86850; 86900; 86901; 87040; 92920; 92921; 92978; 93005; 93010; 93306; 93460; 94660; 94762; 96372-59; 96374; 96375; 97116; 97162; 97165; 97530; 99152; 99153; 99285-25; A9270; A9270-GY; C1725; C1753; C1769; C1874; C1887; C1894; C9600; J0360; J0456; J0696; J1200; J1644; J1720; J1940; J2250; J2930; J3010; J3480; J3490; J7030; J7040; J7050; Q0163; Q9967; U0002

== ENCOUNTER 2022-06-18 16:57 | Observation (INO) | payer OTHER ==
[~2022-06-18 16:57] MED LIST changes: +ASPI325EC PO; +ATOR20 PO; +Afeditab Cr60 MG PO; +BASAGLAR K100 UNIT/1 SC; +CARV25 PO; +CLOP75 PO; +ELIQUIS5 MG PO; +FOLI1 PO; +Humalog100 UNIT/1 SC; +INSULANPEN SC; +LOSA50 PO; +LOSARTAN POTAS100 M1 PO; +METF500 PO; +TERA5 PO; +TORSE20 PO; +XARELTO20 MG PO
[2022-06-18 17:46] LABS: BASOPHILS ABSOLUTE AUTO 0.02 K/mm3 (0.00-0.23); BASOPHILS PERCENT AUTO 0 % (0-2); EOSINOPHILS ABSOLUTE AUTO 0.02 K/mm3 (0.00-0.68); EOSINOPHILS PERCENT AUTO 0 % (0-6); Hemoglobin 11.5 g/dL (13.5-17.5); IMMATURE GRAN ABSOLUTE AUTO 0.02 K/mm3 (0.00-0.10); IMMATURE GRAN PERCENT AUTO 0 % (0-1); LYMPHOCYTES ABSOLUTE AUTO 0.73 K/mm3 (0.84-5.20); LYMPHOCYTES PERCENT AUTO 9 % (21-46); MONOCYTES ABSOLUTE AUTO 0.58 K/mm3 (0.16-1.47); MONOCYTES PERCENT AUTO 7 % (4-13); Mean Corpuscular HGB 30.8 pg (26.0-34.0); Mean Corpuscular HGB Conc 33.8 g/dL (31.5-36.5); Mean Corpuscular Volume 91 fL (80-100); Mean Platelet Volume 10.3 fL (9.1-12.4); NEUTROPHILS ABSOLUTE AUTO 6.72 K/mm3 (1.96-9.15); NEUTROPHILS PERCENT AUTO 83 % (41-73); Platelet Count 196 K/mm3 (150-400); RDW Coefficient Variation 13.1 % (11.7-14.2); RDW Standard Deviation 43.1 fL (35.1-46.3); Red Blood Cell Count 3.73 M/mm3 (4.30-5.90); White Blood Cell Count 8.09 K/mm3 (4.00-11.30)
[2022-06-18 17:59] LABS: International Normalized Ratio 1.15
[2022-06-18 18:03] LABS: Bun/Creatinine Ratio 20.5 (12.0-20.0); Creatinine, Blood 0.73 mg/dL (0.60-1.20)
[2022-06-18 19:00] LABS: Source, Urine Clean Catch
[2022-06-18 19:04] LABS: Appearance, Urine Clear (Clear); Bilirubin, Urine Neg (Neg); Blood, Urine Neg (Neg); Glucose Qualitative, Urine 4+ (Neg); Ketones, Urine 1+ (Neg); Leukocyte Esterase, Urine Neg (Neg); Nitrite, Urine Neg (Neg); Protein, Urine Neg (Neg); Specific Gravity, Urine 1.015 (1.003-1.022); Urobilinogen, Urine NORM (Normal)
[2022-06-18 19:15] LABS: Color, Urine Pale Yellow (P-Yellow)
[2022-06-19] MEDS ORDERED: MAGNESIUM OXID500 MG PO (00:44)
[2022-06-19] MEDS ORDERED: METF500 PO (00:50)
[2022-06-19] MEDS ORDERED: OMEGA-3 FISH O1 EAC6 PO (00:53)
[2022-06-19] MEDS ORDERED: POTCHL20ER PO (01:00)
[2022-06-19] MEDS ORDERED: VALS80 PO (01:04)
[2022-06-19] MEDS ORDERED: JARDIANCE25 MG PO (01:06)
[2022-06-19] MEDS ORDERED: ALOGLIPTIN25 M1 PO (01:09)
[2022-06-19 04:56] LABS: BASOPHILS ABSOLUTE AUTO 0.05 K/mm3 (0.00-0.23); BASOPHILS PERCENT AUTO 1 % (0-2); EOSINOPHILS ABSOLUTE AUTO 0.07 K/mm3 (0.00-0.68); EOSINOPHILS PERCENT AUTO 1 % (0-6); Hematocrit 31.1 % (37.0-53.0); Hemoglobin 10.4 g/dL (13.5-17.5); IMMATURE GRAN ABSOLUTE AUTO 0.02 K/mm3 (0.00-0.10); IMMATURE GRAN PERCENT AUTO 0 % (0-1); LYMPHOCYTES ABSOLUTE AUTO 1.38 K/mm3 (0.84-5.20); LYMPHOCYTES PERCENT AUTO 21 % (21-46); MONOCYTES ABSOLUTE AUTO 0.72 K/mm3 (0.16-1.47); MONOCYTES PERCENT AUTO 11 % (4-13); Mean Corpuscular HGB 31.2 pg (26.0-34.0); Mean Corpuscular HGB Conc 33.4 g/dL (31.5-36.5); Mean Corpuscular Volume 93 fL (80-100); Mean Platelet Volume 10.5 fL (9.1-12.4); NEUTROPHILS ABSOLUTE AUTO 4.34 K/mm3 (1.96-9.15); NEUTROPHILS PERCENT AUTO 66 % (41-73); Platelet Count 184 K/mm3 (150-400); RDW Coefficient Variation 13.1 % (11.7-14.2); RDW Standard Deviation 44.7 fL (35.1-46.3); Red Blood Cell Count 3.33 M/mm3 (4.30-5.90); White Blood Cell Count 6.58 K/mm3 (4.00-11.30)
[2022-06-19 05:20] LABS: Bun/Creatinine Ratio 21.3 (12.0-20.0); Calcium, Blood 8.2 mg/dL (8.5-10.1); Creatinine, Blood 0.75 mg/dL (0.60-1.20); Potassium, Blood 3.5 mmol/L (3.5-5.5)
--- NOTE | 2022-06-19 06:56 | NUR ---
SUMMARY PT ARRIVED TO FLOOR IN NO DISTRESS. PT IS HESITANT TO STAND CURRENTLY. PT DENIES CX PAIN OR SOB. PT HAS VOIDED VIA URINAL WITHOUT ISSUE. PT HAS BEEN TX FOR DISCOMFORT PER EMAR WITH RELIEF. PT HAS SLEPT SOUNDLY AND COMFORTABLY.
--- NOTE | 2022-06-19 16:47 | NUR ---
Shift Summary A/Ox4, pleasant and cooperative. Up to bathroom several times, continent using bathroom and urinal. 1p FWW and gait belt. Up in chair for most meals. Mild 2-3/10 pain to L hip from fall, no visible eccyhmosis at site of impact. Good appetite. Calling appropriately for needs. Blood sugar in the 200's, no insulin or anti-diabetic's ordered. Home med rec completed.
[2022-06-20 06:23] LABS: Hematocrit 31.1 % (37.0-53.0)
--- NOTE | 2022-06-20 06:26 | NUR ---
SUMMARY PT HAS HAD NO ISSUES. PT DENIES ANY INCREASED DISCOMFORT. PT HAS BEEN UP WITH GB, FWW TO RESTROOM. PT TOLERATED WELL. PT HAS SLEPT SOUNDLY THROUGHOUT SHIFT. CALL LIGHT IN REACH.
[2022-06-20] MEDS ORDERED: TRAM50 PO (11:05)
--- NOTE | 2022-06-20 20:08 | NUR ---
REVIEWED PT'S INFORMATION R/T PT AND PT'S SON'S QUESTIONS ABOUT MEDS GIVEN AND ORDERED AT DISCHARGE AND SCRIPT WRITTEN BY AFTER DISCH. PT OR PT'S SON KOTA TO DIRECT CARE STAFFER WHEN ABLE.
== END 2022-06-20 12:00 | disposition home health service (06) ==
LOC: ER 16:57 → MEDS 21:07
PROVIDERS: Family Medicine; Physician Assistant; ADMIT Internal Medicine
DX: S30.0XXA Contusion of lower back and pelvis, initial encounter (principal); I48.0 Paroxysmal atrial fibrillation; I50.22 Chronic systolic (congestive) heart failure; E11.9 Type 2 diabetes mellitus without complications; I11.0 Hypertensive heart disease with heart failure; E78.5 Hyperlipidemia, unspecified; D64.9 Anemia, unspecified; I25.10 Atherosclerotic heart disease of native coronary artery without angina pectoris; Z95.5 Presence of coronary angioplasty implant and graft; Z79.02 Long term (current) use of antithrombotics/antiplatelets; Z88.8 Allergy status to other drugs, medicaments and biological substances; Z79.82 Long term (current) use of aspirin; Z79.01 Long term (current) use of anticoagulants; Z95.0 Presence of cardiac pacemaker; Z87.891 Personal history of nicotine dependence; Z79.4 Long term (current) use of insulin
CPT/HCPCS: 36415; 72100; 72192; 73502; 80048; 81003; 82947; 85014; 85018; 85025; 85610; 93005; 93010; 96372; 96374; 97110; 97116; 97162; 97166; 97535; 99285-25; A9270; G0378; J1815; J2270

== ENCOUNTER 2024-11-04 13:52 | Inpatient (IN) | payer OTHER ==
[~2024-11-04] VITALS: Ht 177.8 cm; Wt 79.8 kg
[~2024-11-04 13:52] MED LIST changes: +ALOGLIPTIN25 M1 PO; +JARDIANCE25 MG PO; +MAGNESIUM OXID500 MG PO; +OMEGA-3 FISH O1 EAC6 PO; +POTCHL20ER PO; +TRAM50 PO; +VALS80 PO
[2024-11-04] MEDS ORDERED: Vancomycin HCL 1,750 MG in NS 500 ML IV ONE (14:30)
[2024-11-04 14:53] LABS: BASOPHILS ABSOLUTE AUTO 0.08 K/mm3 (0.00-0.23); BASOPHILS PERCENT AUTO 1 % (0-2); EOSINOPHILS ABSOLUTE AUTO 0.09 K/mm3 (0.00-0.68); EOSINOPHILS PERCENT AUTO 1 % (0-6); Hematocrit 45.3 % (37.0-53.0); Hemoglobin 14.9 g/dL (13.5-17.5); IMMATURE GRAN ABSOLUTE AUTO 0.02 K/mm3 (0.00-0.10); IMMATURE GRAN PERCENT AUTO 0 % (0-1); LYMPHOCYTES ABSOLUTE AUTO 1.25 K/mm3 (0.84-5.20); LYMPHOCYTES PERCENT AUTO 15 % (21-46); MONOCYTES ABSOLUTE AUTO 0.73 K/mm3 (0.16-1.47); MONOCYTES PERCENT AUTO 9 % (4-13); Mean Corpuscular HGB 31.1 pg (26.0-34.0); Mean Corpuscular HGB Conc 32.9 g/dL (31.5-36.5); Mean Corpuscular Volume 95 fL (80-100); Mean Platelet Volume 9.7 fL (9.1-12.4); NEUTROPHILS ABSOLUTE AUTO 6.22 K/mm3 (1.96-9.15); NEUTROPHILS PERCENT AUTO 74 % (41-73); Platelet Count 205 K/mm3 (150-400); RDW Coefficient Variation 13.3 % (11.7-14.2); RDW Standard Deviation 46.9 fL (35.1-46.3); Red Blood Cell Count 4.79 M/mm3 (4.30-5.90); White Blood Cell Count 8.39 K/mm3 (4.00-11.30)
[2024-11-04 15:21] LABS: Albumin, Blood 3.5 g/dL (3.4-5.0); Albumin/Globulin Ratio 0.9 (0.8-1.8); Bilirubin, Total 0.9 mg/dL (0.1-1.0); Bun/Creatinine Ratio 19.6 (12.0-20.0); C-REACTIVE PROTEIN, EXT RANGE 6.49 mg/dL (0.000-0.300); Calcium, Blood 8.9 mg/dL (8.5-10.1); Creatinine, Blood 1.02 mg/dL (0.60-1.20); Magnesium, Blood 2.2 mg/dL (1.6-2.4); Potassium, Blood 4.3 mmol/L (3.5-5.5); Total Protein, Blood 7.5 g/dL (6.4-8.2)
[2024-11-04] MEDS ORDERED: Ondansetron HCl 2 MG / ML 2ML Vial IV PRN (18:00)
[2024-11-04] MEDS ORDERED: NS 1,000 ML IV SCH (18:00)
[2024-11-04] MEDS ORDERED: Insulin Human Lispro 100 Units/ML 3ML Syringe SC SCH (18:00)
[2024-11-04] MEDS ORDERED: Clindamycin 900mg in D5W 50ML 50 ML IV ONE (18:30)
[2024-11-04] MEDS ORDERED: ELIQUIS5 M2 PO (19:06)
[2024-11-04] MEDS ORDERED: ATOR40TA PO (19:07)
[2024-11-04] MEDS ORDERED: FOLI1 PO (19:07)
[2024-11-04] MEDS ORDERED: VALS80 PO (19:08)
[2024-11-04] MEDS ORDERED: SITA100T2 PO (19:09)
[2024-11-04] MEDS ORDERED: SPIR50 PO (19:09)
[2024-11-04] MEDS ORDERED: DONE5 PO (19:10)
[2024-11-04] MEDS ORDERED: BASAGLAR K100 UNIT/6 SC (19:11)
[2024-11-04] MEDS ORDERED: INSULANI SC (19:12)
[2024-11-04 19:59] VITALS: BP 139/89
[2024-11-04] MEDS ORDERED: Lactobacil 2-S.Thermo-Bifido 1 1 Cap PO SCH (21:00)
[2024-11-05] MEDS ORDERED: Clindamycin 900mg in D5W 50ML 50 ML IV SCH (02:00)
[2024-11-05 03:22] VITALS: BP 119/72
--- NOTE | 2024-11-05 03:49 | NUR ---
1946: ADMITTED FROM ER. FOR R MEDIAL DIABETIC ULCER. AREA IS RED BUT CLOSED, NO DRAINAGE. PT DENIES PAIN UNLES BUMPED. AAOX4. [place] WITH HEARING AIDS. UP WITH SBAX1 WITH A CANE. PACEMAKER. RA. CONTINENT OF BM AND URINE. RFA IV FOR VANCO AND CLEOCIN. HE LIVES AT HOME WITH A 24/7 IN HOUSE CAREGIVER. BG CHECKS EVERY 6 HOURS, WITH A CC DIET. PLEASANT AND COOPERATIVE WITH CARES.
[2024-11-05 07:32] VITALS: BP 117/71
[2024-11-05] MEDS ORDERED: Carvedilol 25 MG Tab PO SCH (08:00)
[2024-11-05] MEDS ORDERED: Clopidogrel Bisulfate 75 MG Tab PO SCH (09:00)
[2024-11-05] MEDS ORDERED: Clopidogrel Bisulfate 75 MG Tab PO ONE (12:40)
[2024-11-05 16:05] VITALS: BP 112/66
--- NOTE | 2024-11-05 17:13 | NUR ---
SHIFT SUMMARY PT IS A/OX3-4. HARD OF HEARING. PODIATRY CONSULTED AND VISITED THE PT THIS MORNING. ULCER CLEANED AND DRESSED BY PODIATRY. VENOUS DUPLEX ALSO COMPLETED THIS MORNING. DAUGHTER AND CAREGIVER AT BEDSIDE THROUGHOUT THIS SHIFT. PT REPORTS NO PAIN, HOWEVER DOES REPORT NUMBNESS TO BILAT FEET. PT UP WITH 1 PERSON ASSIST D/T WEAKNESS AND REQUIRING ASSISTANCE WITH IV. NS RUNNING @ 100 ML/HR.
[2024-11-05 19:40] VITALS: BP 113/54
[2024-11-06 05:18] VITALS: BP 123/81
--- NOTE | 2024-11-06 05:27 | NUR ---
Dressing to R foot came off. Placed adaptic over open red area, wrapped with Kerlix and secured with tape. Pt tolerated well with no complaints.
[2024-11-06 07:37] VITALS: BP 150/79
[2024-11-06] MEDS ORDERED: VISBIOME 112.51 EACH PO (11:52)
[2024-11-06] MEDS ORDERED: AMOCLA875 PO (11:53)
--- NOTE | 2024-11-06 15:28 | NUR ---
AOX4 COOPERATIVE OF CARE. PT DISCHARGED AT 1305 WITH FAMILY TO TRANSPORT.PT HAD DISCHARGE PAPERWORK REVIEWED AND EDUCATIONAL MATERTIAL WAS SENT WITH HIM. NO DISTRESS NOTED AND ALL PERSONAL MATERIAL WAS COLLECTED AND TAKEN HOME. PT ESCORTED OUT VIA WHEELCHAIR. NO DISTRESS NOTED.
== END 2024-11-06 13:46 | disposition home health service (06) | DRG 638 ==
LOC: ER 13:52 → MEDS 17:31 → ERHOLD 17:31 → MEDS 19:46
PROVIDERS: Emergency Medicine; ADMIT Internal Medicine
PROC: 0HDMXZZ Extraction of Right Foot Skin, External Approach (ICD-10-PCS; principal; 2024-11-05)
DX: E11.628 Type 2 diabetes mellitus with other skin complications (principal); I44.2 Atrioventricular block, complete; I50.22 Chronic systolic (congestive) heart failure; L03.115 Cellulitis of right lower limb; L02.611 Cutaneous abscess of right foot; E11.621 Type 2 diabetes mellitus with foot ulcer; I25.10 Atherosclerotic heart disease of native coronary artery without angina pectoris; I48.0 Paroxysmal atrial fibrillation; I11.0 Hypertensive heart disease with heart failure; E78.5 Hyperlipidemia, unspecified; F17.290 Nicotine dependence, other tobacco product, uncomplicated; M19.071 Primary osteoarthritis, right ankle and foot; E11.65 Type 2 diabetes mellitus with hyperglycemia; I70.235 Atherosclerosis of native arteries of right leg with ulceration of other part of foot; L97.511 Non-pressure chronic ulcer of other part of right foot limited to breakdown of skin; E11.51 Type 2 diabetes mellitus with diabetic peripheral angiopathy without gangrene; Z88.8 Allergy status to other drugs, medicaments and biological substances; Z79.84 Long term (current) use of oral hypoglycemic drugs; Z79.4 Long term (current) use of insulin; Z79.01 Long term (current) use of anticoagulants; Z95.0 Presence of cardiac pacemaker; Z79.02 Long term (current) use of antithrombotics/antiplatelets; Z95.5 Presence of coronary angioplasty implant and graft; Z97.4 Presence of external hearing-aid
CPT/HCPCS: 73620; 80053; 82947; 83735; 85025; 85651; 86140; 87070; 87075; 87077; 87147; 87186; 87205; 93926; 96365; 96366; A9270; J3370; J7030; J7040

== ENCOUNTER 2025-05-31 16:35 | Inpatient (IN) | payer OTHER ==
[~2025-05-31] VITALS: Ht 177.8 cm; Wt 74.0 kg
[~2025-05-31 16:35] MED LIST changes: +AMOCLA875 PO; +ATOR40TA PO; +BASAGLAR K100 UNIT/6 SC; +DONE5 PO; +ELIQUIS5 M2 PO; +INSULANI SC; +SITA100T2 PO; +SPIR50 PO; +VISBIOME 112.51 EACH PO
[2025-05-31 19:07] LABS: BASOPHILS ABSOLUTE AUTO 0.07 K/mm3 (0.00-0.23); BASOPHILS PERCENT AUTO 1 % (0-2); EOSINOPHILS ABSOLUTE AUTO 0.15 K/mm3 (0.00-0.68); EOSINOPHILS PERCENT AUTO 3 % (0-6); Hematocrit 44.3 % (37.0-53.0); Hemoglobin 14.2 g/dL (13.5-17.5); IMMATURE GRAN ABSOLUTE AUTO 0.01 K/mm3 (0.00-0.10); IMMATURE GRAN PERCENT AUTO 0 % (0-1); LYMPHOCYTES ABSOLUTE AUTO 1.71 K/mm3 (0.84-5.20); LYMPHOCYTES PERCENT AUTO 29 % (21-46); MONOCYTES ABSOLUTE AUTO 0.46 K/mm3 (0.16-1.47); MONOCYTES PERCENT AUTO 8 % (4-13); Mean Corpuscular HGB Conc 32.1 g/dL (31.5-36.5); Mean Corpuscular Volume 94 fL (80-100); NEUTROPHILS ABSOLUTE AUTO 3.45 K/mm3 (1.96-9.15); NEUTROPHILS PERCENT AUTO 59 % (41-73); NRBC ABSOLUTE 0.00 K/mm3 (0.00-0.02); NRBC Auto 0.0 /100 WBC (0.0-0.2); Platelet Count 206 K/mm3 (150-400); RDW Coefficient Variation 13.5 % (11.7-14.2); RDW Standard Deviation 46.5 fL (35.1-46.3)
[2025-05-31 19:31] LABS: Alanine Aminotransfer (ALT/SGP 32.0 U/L (12-78); Albumin, Blood 4.0 g/dL (3.4-5.0); Albumin/Globulin Ratio 1.3 (0.8-1.8); Anion Gap 9.0 mmol/L (3-11); Aspartate Aminotrans (AST/SGOT 20.0 U/L (12-37); Bilirubin, Total 0.6 mg/dL (0.1-1.0); Blood Urea Nitrogen 25.0 mg/dL (8-24); CO2, Blood 26.0 mmol/L (21-32); Calcium, Blood 9.5 mg/dL (8.5-10.1); Chloride, Blood 106.0 mmol/L (98-108); Creatinine, Blood 0.74 mg/dL (0.60-1.20); Globulin, Blood 3.1 g/dL (2.2-4.0); Glucose, Blood 171.0 mg/dL (70-99); Potassium, Blood 4.2 mmol/L (3.5-5.5); Sodium, Blood 137.0 mmol/L (136-145); Total Protein, Blood 7.1 g/dL (6.4-8.2)
[2025-05-31] MEDS ORDERED: ELIQUIS5 M3 PO (20:44)
[2025-05-31] MEDS ORDERED: ASPI81CH PO (20:46)
[2025-05-31] MEDS ORDERED: TAMS.4ER PO (20:46)
[2025-05-31] MEDS ORDERED: DiphenhydrAMINE HCl 50 MG/ML 1ML Vial IV ONE (23:20)
[2025-06-01] VITALS (13 sets, daily range): BP systolic 91–151; BP diastolic 55–90
[2025-06-01] MEDS ORDERED: Ondansetron HCl 2 MG / ML 2ML Vial IV PRN (01:50)
[2025-06-01] MEDS ORDERED: FLU VACC TS2025(65UP)/MF59C/PF 45 MCG/0.5 ML SYRINGE IM SCH (01:55)
[2025-06-01 02:00] LABS: Anti-Xa UFH, PHA Monitoring 0.41 IU/mL; Prothrombin Time Results 11.6 Sec (9.7-11.5)
[2025-06-01] MEDS ORDERED: Heparin Sodium,Porcine/0.5 NS 500 ML IV SCH (02:40)
[2025-06-01] MEDS ORDERED: Heparin Sodium 5000 Units/ML 1ML MDV IV ONE (02:40)
[2025-06-01 05:50] LABS: BASOPHILS ABSOLUTE AUTO 0.05 K/mm3 (0.00-0.23); BASOPHILS PERCENT AUTO 1 % (0-2); EOSINOPHILS ABSOLUTE AUTO 0.01 K/mm3 (0.00-0.68); EOSINOPHILS PERCENT AUTO 0 % (0-6); Hematocrit 44.1 % (37.0-53.0); Hemoglobin 14.3 g/dL (13.5-17.5); IMMATURE GRAN ABSOLUTE AUTO 0.01 K/mm3 (0.00-0.10); IMMATURE GRAN PERCENT AUTO 0 % (0-1); LYMPHOCYTES ABSOLUTE AUTO 0.77 K/mm3 (0.84-5.20); LYMPHOCYTES PERCENT AUTO 14 % (21-46); MONOCYTES ABSOLUTE AUTO 0.08 K/mm3 (0.16-1.47); MONOCYTES PERCENT AUTO 2 % (4-13); Mean Corpuscular HGB Conc 32.4 g/dL (31.5-36.5); Mean Corpuscular Volume 92 fL (80-100); NEUTROPHILS ABSOLUTE AUTO 4.43 K/mm3 (1.96-9.15); NEUTROPHILS PERCENT AUTO 83 % (41-73); NRBC ABSOLUTE 0.00 K/mm3 (0.00-0.02); NRBC Auto 0.0 /100 WBC (0.0-0.2); Platelet Count 194 K/mm3 (150-400); RDW Coefficient Variation 13.4 % (11.7-14.2); RDW Standard Deviation 45.2 fL (35.1-46.3)
--- NOTE | 2025-06-01 05:50 | NUR ---
ARRIVAL TO UNIT REPORT FROM EVGENY ANDERSON IN ER AT APPROX 0440. PT ARRIVES TO UNIT AT APPROX 0455. SLID FROM [facility] TO HOSPITAL BED. HE IS ALERT AND ORIENTED TO SELF, DATE, TIME, PLACE, AND SITUATION. PT HAS DEMENTIA AT BASELINE AND CAREGIVER REPORTED TO GAME BIRD FARMER THAT PT IS A/OX2 AT BASELINE. DENIES PAIN. ON CONTINUOUS CARDIAC TELEMETRY, PACED, HR IN 60'S. 1+ EDEMA AND REDNESS IN RLE. PT DENIES SENSATION IN THIS EXTREMITY. PEDAL PULSES PALPABLE WITH DOPPLER, LOCATIONS MARKED. DENIES CHEST PAIN/PRESSURE/SOB AT THIS TIME. ON ROOM AIR, SATS ABOVE 95%. NO OXYGEN AT BASELINE. PT HAS MEDIA RELATIONS MANAGER WHO HELPS HIM AND ALSO [facility]. HE USES A FWW AT BASELINE FOR BALANCE ISSUES.
[2025-06-01] MEDS ORDERED: Insulin Regular 100 UNIT/ML 10ML Vial SC SCH ×2 (06:00→16:30)
[2025-06-01 06:16] LABS: Alanine Aminotransfer (ALT/SGP 29.0 U/L (12-78); Albumin, Blood 3.8 g/dL (3.4-5.0); Albumin/Globulin Ratio 1.2 (0.8-1.8); Anion Gap 10.0 mmol/L (3-11); Aspartate Aminotrans (AST/SGOT 19.0 U/L (12-37); Bilirubin, Total 0.8 mg/dL (0.1-1.0); Blood Urea Nitrogen 22.0 mg/dL (8-24); CO2, Blood 24.0 mmol/L (21-32); Calcium, Blood 9.1 mg/dL (8.5-10.1); Chloride, Blood 106.0 mmol/L (98-108); Creatinine, Blood 0.75 mg/dL (0.60-1.20); Globulin, Blood 3.1 g/dL (2.2-4.0); Glucose, Blood 187.0 mg/dL (70-99); Magnesium, Blood 2.0 mg/dL (1.6-2.4); Potassium, Blood 4.0 mmol/L (3.5-5.5); Sodium, Blood 136.0 mmol/L (136-145); Total Protein, Blood 6.9 g/dL (6.4-8.2)
--- NOTE | 2025-06-01 06:22 | NUR ---
SHIFT SUMMARY NO ACUTE CHANGES SINCE ADMISSION. PT IS POOR HISTORIAN AND VERY FORGETFUL REGARDING SOME HEALTH HISTORY, BUT VERY INFORMED AND DETAILED ABOUT OTHER FACETS OF HEALTH HISTORY. PT CAREGIVER TO BRING IN MED LIST TO RECONCILE MEDICATIONS LATER THIS AFTERNOON.
[2025-06-01] MEDS ORDERED: NS 500 ML IV ONE ×2 (07:44→09:31)
[2025-06-01] MEDS ORDERED: Nitroglycerin 2 MG/20 ML BTL ONE (07:44)
[2025-06-01] MEDS ORDERED: NS 1,000 ML IV ONE ×2 (07:44→08:16)
[2025-06-01] MEDS ORDERED: Heparin Sodium 1000 Units/ML 10ML MDV ONE ×3 (07:44→09:41)
[2025-06-01] MEDS ORDERED: Midazolam HCl 1MG / ML 2ML Vial ONE (08:15)
[2025-06-01] MEDS ORDERED: DiphenhydrAMINE HCl 50 MG/ML 1ML Vial ONE (08:15)
[2025-06-01] MEDS ORDERED: FentaNYL Citrate 50 MCG/ML 2 ML Injection ONE (08:16)
[2025-06-01] MEDS ORDERED: MINOCYCLINE HC100 M2 PO (16:17)
[2025-06-01] MEDS ORDERED: Hair, Skin & N1 EACH PO (16:18)
[2025-06-01] MEDS ORDERED: SYNJARDY 12.5-1 EAC3 PO (16:19)
[2025-06-01] MEDS ORDERED: NITR.4SL (16:22)
[2025-06-01] MEDS ORDERED: ENTRESTO 49 MG1 EACH PO (16:22)
[2025-06-01] MEDS ORDERED: Flonase 0.05% N16 GM (16:22)
--- NOTE | 2025-06-01 19:19 | NUR ---
DISCHARGE SUMMARY: A/O X3-4, NOT ORIENTED TO DATE BUT ANSWERS ALL OTHER QUESTIONS APPROPRIATELY, PLEASANT AND COOPERATIVE WITH CARE, FORGETFUL, FAMILY REPORTS IMPULSIVITY AND FLIGHT RISK, BED ALARM SET. PT WENT FOR REVASCULARIZATION IN RIGHT LEG WITH LEFT FEMORAL ACCESS, ANGIOPLASTY OF POPLITEAL ARTERY DISTALLY AND PROXIMAL ANTERIOR TIBIAL ARTERY AND FEMORAL DISTAL POSTERIOR TIBIAL ARTERY COMPLETED, ACCESS SITE RECOVERED WITHOUT INCIDENT, HEPARIN RUNNING PER ORDER, PT DENIES PAIN OR ACHE IN LEG BUT REPORTS NEW SENSATION OF BEING ABLE TO FEEL TO HIS RIGHT FOOT. PT WAS STRAIGHT CATHED AFTER RETURN TO PCU FOR ACUTE RETENTION AND MOBILITY RESTRICTIONS, APPROX 1075 OUT. BLADDER SCANNED APPROX 4 HOURS AFTER CATH REMOVED, APPROX 390ML IN BLADDER, MD GARCIA NOTIFIED WITH NEW ORDERS PLACED. PT SUCCESSFULLY VOIDED APPROX 290ML WHILE STANDING. PT HAS KNOWN HERNIA IN PELVIC REGION THAT MOVES WITH REPOSITIONING, PT USES HANDS TO MOVE IT, SON KOTA REPORTS PLAN FOR HERNIA REPAIR OUT PATIENT. THIS RN SPOKE TO PT S SON KOTA SEVERAL TIMES THROUGHOUT SHIFT TO UPDATE ON PT S CONDITION. STITCH SEPARATOR AUGUSTINA REICH (PH # [phone])TO BEDSIDE, SHE STATES SHE WILL NEED TO BE PRESENT FOR DISCHARGE INSTRUCTIONS AND MEDICATION EDUCATION, LIVES APPROX 1 HOUR AWAY, PHONE NUMBER ALSO ON BOARD. PT ORIENTED TO CALL LIGHT AND EXPRESS NO FURTHER NEEDS AT THIS TIME.
--- NOTE | 2025-06-01 19:46 | NUR ---
DR. CARRERA WAS NOTIFIED OF PATIENTS CBG CHECK BEING 350 THIS EVENING AND ALSO HAS HIS ENTRESTO AND METOPROLOL ORDERED WITHOUT PERAMETERS AND IF THE MD WANTED ME TO HOLD EITHER ONE. MD RESPONDED STATING "HOLD THE METOPROLOL FOR TONIGHT AND GIVE THE ENTRESTO. GIVE THE 4 UNITS OF HUMALIN R AND 10 UNITS OF LANTUS FOR NOW - RECHECK CBG BETWEEN [phone] AND CALL BE BACK WITH THOSE RESULTS".
[2025-06-01] MEDS ORDERED: Dose Adjust by Pharmacy XX STA (20:30)
[2025-06-01] MEDS ORDERED: Sacubitril/Valsartan 49 MG/51 MG Tab PO SCH (21:00)
[2025-06-01] MEDS ORDERED: Fluticasone 0.05% Nasal Spray SCH (21:00)
[2025-06-01] MEDS ORDERED: Insulin Glargine 100 Unit/ML 3 ML SYR SC SCH (21:00)
--- NOTE | 2025-06-01 21:05 | NUR ---
NOTIFIED DR. CARRERA OF PATIENTS CBG RESULTS AN HOUR AFTER SUB Q INSULIN WAS GIVEN PER SEP - CBG THIS TIME WAS 303. MD RESPONDED "LETS RECHECK IN ANOTHER HOUR AND WILL GIVE MORE INSULIN IF NEEDED".
--- NOTE | 2025-06-01 22:11 | NUR ---
NOTIFIED DR. CARRERA OF PATIENTS CBG NOW BEING 337 AN HOUR AFTER THE LAST CHECK. STATED "ORDER 5 UNITS OF LISPRO SUBQ A ONE TIME DOSE". ORDER HAS BEEN PLACED. WAITING ON PHARMACY TO APPROVE.
[2025-06-01] MEDS ORDERED: Insulin Human Lispro 100 Units/ML 3ML Syringe SC ONE (22:15)
[2025-06-02 00:18] VITALS: BP 101/56
[2025-06-02 03:29] VITALS: BP 107/64
[2025-06-02 04:05] LABS: BASOPHILS ABSOLUTE AUTO 0.07 K/mm3 (0.00-0.23); BASOPHILS PERCENT AUTO 1 % (0-2); EOSINOPHILS ABSOLUTE AUTO 0.06 K/mm3 (0.00-0.68); EOSINOPHILS PERCENT AUTO 1 % (0-6); Hematocrit 37.4 % (37.0-53.0); Hemoglobin 12.1 g/dL (13.5-17.5); IMMATURE GRAN ABSOLUTE AUTO 0.02 K/mm3 (0.00-0.10); IMMATURE GRAN PERCENT AUTO 0 % (0-1); LYMPHOCYTES ABSOLUTE AUTO 1.88 K/mm3 (0.84-5.20); LYMPHOCYTES PERCENT AUTO 20 % (21-46); MONOCYTES ABSOLUTE AUTO 0.93 K/mm3 (0.16-1.47); MONOCYTES PERCENT AUTO 10 % (4-13); Mean Corpuscular HGB Conc 32.4 g/dL (31.5-36.5); Mean Corpuscular Volume 93 fL (80-100); NEUTROPHILS ABSOLUTE AUTO 6.40 K/mm3 (1.96-9.15); NEUTROPHILS PERCENT AUTO 69 % (41-73); NRBC ABSOLUTE 0.00 K/mm3 (0.00-0.02); NRBC Auto 0.0 /100 WBC (0.0-0.2); Platelet Count 183 K/mm3 (150-400); RDW Coefficient Variation 13.6 % (11.7-14.2); RDW Standard Deviation 45.8 fL (35.1-46.3)
[2025-06-02] MEDS ORDERED: Dose Adjust by Pharmacy XX STA ×2 (04:30→11:20)
--- NOTE | 2025-06-02 05:38 | NUR ---
SHIFT SUMMARY: PATIENT IS A&OX3-4 AND MATCH-E-BE-NASH-SHE-WISH BAND, HE AT TIMES FORGETFUL BUT IS EASILY REORIENTED. BED ALARM ON A PRECAUTION. ENVELOPE MACHINE OPERATOR KARLA REPORTS PATIENT HAS BEEN PACED IN THE 60'S BPM. PATIENT HAS BEEN ON ROOM AIR WITH >90% SPO2. HEPARIN GTT CONTINUES TO RUN AT 22.2 ML/HR PER PHARMACY ORDERS IN SEP. PATIENT HAS DENIED PAIN THROUGHOUT SHIFT. PATIENTS IR INCISION SITE ON LEFT GROIN CONTINUES TO BE C/D/I WITH NO HEMATOMA OR BLEEDING NOTED AND CAN MOVE ALL FINGERS AND TOES WHEN ASKED. PATIENT IS CURRENTLY LAYING IN BED WITH CALL LIGHT IN REACH AND BED ALARM ON A PRECAUTION.
[2025-06-02] MEDS ORDERED: MetFORMIN HCl 500 mg PO SCH (08:00)
[2025-06-02 08:55] VITALS: BP 100/66
[2025-06-02 10:03] LABS: Hematocrit 38.4 % (37.0-53.0); Hemoglobin 12.6 g/dL (13.5-17.5); Platelet Count 183 K/mm3 (150-400)
[2025-06-02] MEDS ORDERED: JARDIANCE25 MG PO (11:20)
[2025-06-02 14:10] VITALS: BP 101/75
--- NOTE | 2025-06-02 14:33 | NUR ---
SHIFT SUMMARY/ DISCHARGE NOTE: PT A&OX4 BUT FORGETFULL AT TIMES. FOLLOWS COMMANDS AND MAKES NEEDS KNOWN TO STAFF. PT GOT UP WITH FWW TO THE BATHROOM WITH NO COMPLAINTS AND TOOK A SHOWER. DENIED ANY COMPLAINTS OF CP, PRESSURE, TIGHTNESS OR SOB. VSS. MAP >65. HEPARIN GTT STOPPED AND PT STARTED BACK ON ELIQUIS. NO SIGNIFICANT EVENTS HAPPENED DURING THIS SHIFT. AUGUSTINA (CAREGIVER) AT BEDSIDE TO TAKE PT HOME. THIS RN WENT OVER DISCHARGE WITH AUGUSTINA PER PT REQUEST. ALL QUESTIONS AND CONCERNS WERE ADDRESSED. BELONGINGS WERE COLLECTED AND TAKEN WITH PT VIA WHEELCHAIR BY PREETHI.
== END 2025-06-02 14:10 | disposition home or self-care (01) | DRG 253 ==
LOC: ER 16:35 → PCU 06-01 01:44 → ERHOLD 06-01 01:44 → PCU 06-01 04:52
PROVIDERS: Student in an Organized Health Care Education/Training Program; ADMIT Student in an Organized Health Care Education/Training Program
PROC: 047M3ZZ Dilation of Right Popliteal Artery, Percutaneous Approach (ICD-10-PCS; principal; 2025-06-01)
PROC: 047R3ZZ Dilation of Right Posterior Tibial Artery, Percutaneous Approach (ICD-10-PCS; 2025-06-01)
PROC: 047P3ZZ Dilation of Right Anterior Tibial Artery, Percutaneous Approach (ICD-10-PCS; 2025-06-01)
PROC: B4101ZZ Fluoroscopy of Abdominal Aorta using Low Osmolar Contrast (ICD-10-PCS; 2025-06-01)
PROC: B41F1ZZ Fluoroscopy of Right Lower Extremity Arteries using Low Osmolar Contrast (ICD-10-PCS; 2025-06-01)
PROC: 0T9B70Z Drainage of Bladder with Drainage Device, Via Natural or Artificial Opening (ICD-10-PCS; 2025-06-01)
DX: E11.51 Type 2 diabetes mellitus with diabetic peripheral angiopathy without gangrene (principal); I50.22 Chronic systolic (congestive) heart failure; T82.392A Other mechanical complication of femoral arterial graft (bypass), initial encounter; I70.201 Unspecified atherosclerosis of native arteries of extremities, right leg; I25.10 Atherosclerotic heart disease of native coronary artery without angina pectoris; I48.0 Paroxysmal atrial fibrillation; I11.0 Hypertensive heart disease with heart failure; E78.5 Hyperlipidemia, unspecified; F01.A0 Vascular dementia, mild, without behavioral disturbance, psychotic disturbance, mood disturbance, and anxiety; F17.290 Nicotine dependence, other tobacco product, uncomplicated; I44.39 Other atrioventricular block; Y71.2 Prosthetic and other implants, materials and accessory cardiovascular devices associated with adverse incidents; Z95.5 Presence of coronary angioplasty implant and graft; Z79.01 Long term (current) use of anticoagulants; Z95.0 Presence of cardiac pacemaker; Z88.8 Allergy status to other drugs, medicaments and biological substances; Z79.84 Long term (current) use of oral hypoglycemic drugs; Z79.4 Long term (current) use of insulin
CPT/HCPCS: 36415; 73706; 76937; 80053; 82947; 83036; 83735; 85014; 85018; 85025; 85049; 85520; 85610; 85651; 85730; 86140; 93005; 93010; 93926; 96374; 96375; 99152; 99153; 99285-25; A9270; C1725; C1760; C1769; C1887; C1894; J1200; J1644; J1720; J1815; J2250; J2919; J3010; J7030; J7040; J7050; Q9967